=== PATIENT | female | born 1990 | race Caucasian/White ===

== ENCOUNTER 2019-06-02 13:04 | Emergency (ER) | payer MEDICAID, OTHER ==
[~2019-06-02] VITALS: Ht 175.3 cm; Wt 60.0 kg
[2019-06-02] MEDS ORDERED: SODIUM CHLORIDE 0.9% 1,000 ML IV ONE (13:40)
[2019-06-02] MEDS ORDERED: SERT50TA PO (13:41)
--- NOTE | 2019-06-02 13:53 | NUR ---
PT TO US
[2019-06-02] MEDS ORDERED: SODIUM CHLORIDE FLUSH 10ML SYR IVF ONE (14:00)
[2019-06-02 14:05] LABS: BASOPHILS # (AUTO) 0.02 x10^3/uL (0-0.1); BASOPHILS % (AUTO) 1 % (0-1); EOSINOPHILS # (AUTO) 0.04 x10^3/uL (0-0.4); EOSINOPHILS % (AUTO) 1 % (1-7); LYMPHOCYTES # (AUTO) 0.27 x10^3/uL (1-3.4); LYMPHOCYTES % (AUTO) 8 % (22-44); MD NO; MEAN CORPUSCULAR HEMOGLOBIN 30.6 pg (27.0-34.8); MEAN CORPUSCULAR HGB CONC 33.4 g/dL (32.4-35.8); MEAN CORPUSCULAR VOLUME 91.5 fL (80-100); MEAN PLATELET VOLUME 9.2 fL (7.4-10.4); MONOCYTES # (AUTO) 0.55 x10^3/uL (0.2-0.8); MONOCYTES % (AUTO) 16 % (2-9); NEUTROPHILS # (AUTO) 2.63 x10^3/uL (1.8-6.8); NEUTROPHILS % (AUTO) 75 % (42-75); PLATELET COUNT 232 x10^3/uL (130-400)
[2019-06-02 14:07] LABS: MICROSCOPIC NOT IND
[2019-06-02 14:10] LABS: CULTURE INDICATED? NO
--- NOTE | 2019-06-02 14:45 | NUR ---
PT RETURNED FROM US, UPRIGHT ON GURNEY AWAKE & COMFORTABLE, RESPONDS APPROP TO STAFF, NAD, COMFORT MEASURES PROVIDED, CALL LIGHT WITHN REACH.
[2019-06-02] MEDS ORDERED: ACETAMINOPHEN 500 MG TABLET ONE (14:54)
[2019-06-02] MEDS ORDERED: ACETAMINOPHEN 500 MG TABLET PO ONE (15:00)
[2019-06-02 15:15] VITALS: BP 108/48
--- NOTE | 2019-06-02 15:16 | NUR ---
Patient given discharge instructions and they have confirmed that they understand the instructions. Patient ambulatory with steady gait.
== END 2019-06-02 16:06 | disposition home or self-care (01) ==
LOC: ED 15:50
DX: O00.90 Unspecified ectopic pregnancy without intrauterine pregnancy (principal); O99.331 Smoking (tobacco) complicating pregnancy, first trimester; Z3A.01 Less than 8 weeks gestation of pregnancy
CPT/HCPCS: 36415; 76770; 76801; 81003; 84702; 85025; 99284; J7030